=== PATIENT | female | born 1970 | race Caucasian/White ===

== ENCOUNTER 2024-12-06 10:18 | Outpatient (CLI) | payer OTHER, SELFPAY ==
--- NOTE | 2024-12-06 10:24 | MM_ITS ---
WS: [id number] BILATERAL 3D TOMOSYNTHESIS DIGITAL SCREENING MAMMOGRAPHY WITH CAD CLINICAL INFORMATION: SCREENING HISTORY: Screening mammogram. No current complaints. COMPARISON: None available TECHNIQUE: Bilateral CC and MLO views. FINDINGS: The breasts are composed of heterogeneous fibroglandular density tissue, which can limit the detection of small underlying mass lesions. Partially obscured lobulated ovoid nodule adjacent to the chest wall upper inner RIGHT breast measuring1.3 cm may represent enlarged lymph node but technically indeterminate. Recommend further evaluation with ultrasound. Unremarkable LEFT breast. MM/MM [facility] tomosynthesis [id number] IMPRESSION: DENSITY: The breasts are heterogeneously dense, which may obscure small masses. BI-RADS: 0 - Incomplete: Need additional imaging evaluation FOLLOW UP: Need Additional Imaging Recommend RIGHT breast ultrasound in further evaluation upper inner RIGHT breas t
== END 2024-12-06 10:19 | disposition home or self-care (01) ==
LOC: RAD 10:20
PROVIDERS: PCP Family Medicine; Visit Provider Family Medicine
DX: Z12.31 Encounter for screening mammogram for malignant neoplasm of breast (principal); R92.333 Mammographic heterogeneous density, bilateral breasts; N63.12 Unspecified lump in the right breast, upper inner quadrant
CPT/HCPCS: 77063; 77067

== ENCOUNTER 2024-12-22 12:35 | Outpatient (CLI) | payer MEDICAID, SELFPAY ==
--- NOTE | 2024-12-22 12:41 | US_ITS ---
WS: [id number] ULTRASOUND BREAST RIGHT TECHNIQUE: Ultrasound right breast focused area of concern. CLINICAL INFORMATION: R BREAST MASS FINDINGS: Ultrasound RIGHT breast demonstrates a hypoechoic lobulated nodule at the 1 o'clock position measuring 1.3 x 0.8 x 0.8 cm 4 cm from the nipple adjacent to the chest wall. This corresponds to the lesion seen on mammography. Recommend further evaluation with ultrasound-guided biopsy. US/US breast RT limited* [id number] IMPRESSION: Suspicious nodule at the 1 o'clock position. Recommend further evaluation with ultrasound-guided biopsy.
== END 2024-12-22 12:36 | disposition home or self-care (01) ==
PROVIDERS: PCP Family Medicine; Visit Provider Family Medicine
DX: N63.12 Unspecified lump in the right breast, upper inner quadrant (principal)
CPT/HCPCS: 76642

== ENCOUNTER 2025-01-18 14:16 | Outpatient (CLI) | payer MEDICAID, SELFPAY ==
--- NOTE | 2025-01-18 14:21 | US_ITS ---
WS: [id number] ULTRASOUND-GUIDED RIGHT BREAST BIOPSY CLINICAL INFORMATION: R BREAST MASS FINDINGS: The procedure including risks, benefits, and complications were discussed with the patient who agreed to proceed. Using sterile technique patient was prepped and draped in the usual sterile fashion. After 1% lidocaine utilizing real-time ultrasound guidance 5 14-gauge cores were obtained of the RIGHT breast lesion at the 1:00 o'clock position 4 cm from the nipple. Subsequently a titanium clip was placed in the biopsy cavity. No immediate complications. US/[place] [id number] IMPRESSION: 1. Uncomplicated ultrasound-guided RIGHT breast biopsy. 2. The pathology demonstrates benign breast parenchyma with extensive stromal fibrosis/hyalinization and focal fibroadenomatoid changes. No atypia or maligna ncy. Findings are benign. 3. Recommend return to annual screening mammography.. DENSITY: The breasts are heterogeneously dense, which may obscure small masses. BI-RADS: 2 - Benign FOLLOW UP: 1 Year Follow-up Recommend return to annual screening mammography.
== END 2025-01-18 14:17 | disposition home or self-care (01) ==
LOC: RAD 14:18
PROVIDERS: PCP Family Medicine; Visit Provider Family Medicine
DX: N63.12 Unspecified lump in the right breast, upper inner quadrant (principal); N60.31 Fibrosclerosis of right breast
CPT/HCPCS: 19083; 88305

== ENCOUNTER 2025-01-29 12:50 | Emergency (ER) | payer MEDICAID, SELFPAY ==
[2025-01-29 12:54] VITALS: BP 134/64; PULSE 80; TEMP 37; O2SAT 95; BMI 27.1
--- NOTE | 2025-01-29 13:19 | ED_ITS ---
HPI - Dental/Oral 2 General: Chief complaint: Dental/Oral Stated complaint: tooth pain, facial swelling Time Seen by Provider: 01/29/25 13:04 Source: patient Mode of arrival: ambulatory Limitations: no limitations History of Present Illness: Patient is a 54-year-old female that presents to the emergency department with concern of possible dental infection after she had 3 teeth pulled last week. She has a partial denture covering the location. She denies any fever or chills but has had pain, swelling and bruising to the face. She has been using [id number] Tylenol and ibuprofen to help with the pain. She reports nausea but denies any vomiting. She is afebrile here. She presents to the emergency department for antibiotics for possible infection. Patient states she does have an allergy to sulfa but is able to take amoxicillin without difficulty. Associated symptoms: Denies fever(s) or tongue swelling Related Data Previous Rx's ?Medication ?Instructions ?Recorded amoxicillin 875 mg-potassium 1 tab PO BID #19 tabs clavulanate 125 mg tablet ondansetron 4 mg disintegrating 4 mg PO .q6-8h PRN ne[place] sea and 01/29/25 tablet vomiting #10 tabs Allergies Allergy/AdvReac Type Severity Reaction Status Date / Time Sulfa (Sulfonamide Allergy Unknown Verified 01/29/25 13:03 Antibiotics) Review of Systems 2 General: Reports: 10 or more systems reviewed and unremarkable except in HPI and below Const: Denies: fever(s) or chills Eyes: Denies: change in vision ENMT: Reports: mouth pain and dental pain; Denies: ear discharge Card: Denies: chest pain or palpitations Resp: Denies: dyspnea, productive cough or non-productive cough GI: Reports: nausea; Denies: abdominal pain or vomiting : Denies: dysuria or urinary frequency Musc: Denies: neck pain or back pain Skin/Breast: Reports: changes in skin color (Right sided facial and jaw bruising) Neuro: Denies: headache(s), numbness in extremities or weakness in extremities Psych: Denies: anxiety or depression Endo: Denies: polydipsia Rahul/Lymph: Denies: easy bruising or easy bleeding All/Imm: Reports: facial swelling (Appears to be traumatic); Denies: tongue swelling PFSH ED 2 PFSH: Social History (Updated 01/29/25 @ 13:22 by JAZMIN Jones) Smoking and tobacco/nicotine status: current every day tobacco/nicotine user Physical Exam 2 Const: COMMON NORMALS: no acute distress and alert GENERAL APPEARANCE: c ooperative HENMT: COMMON NORMALS: external ears normal HEAD IMAGES: 1. Mild bruising and swelling 2. Mild bruising and swelling FACE & SINUS: edema on the right (Swelling and mild bruising) periorbital, mandible and maxilla EXTERNAL EAR: Yes external ears normal THROAT: p osterior oropharynx normal Eye: COMMON NORMALS: Equal, round and reactive pupils present and conjunctivae normal CONJUNCTIVA: Yes conjunctivae normal PUPIL: Yes Equal, round and reactive pupils present Neck/C-Spine: COMMON NORMALS: full ROM, no lymphadenopathy, supple and no meningeal signs Resp: COMMON NORMALS: normal respiratory effort and clear to auscultation bilaterally AUSCULTATION: clear to auscultation bilaterally, no crackles, no rales, no rhonchi and no wheezes Cardio: COMMON NORMALS: regular rate and regular rhythm RATE: regular rate RHYTHM: regular rhythm Extremity: COMMON NORMALS: full ROM, no calf tenderness and no pedal edema Neuro: SENSORIUM/ORIENTATION: Yes alert MENINGEAL SIGNS: Yes no meningeal signs and No nuccal rigidity Psych: COMMON NORMALS: mental status grossly normal and cooperative A TTITUDE: Yes calm Skin: GENERAL SKIN EXAM: ecchymosis (To the right side of the face) Course 2 Vital Signs: Vital signs: Vital Signs Temperature 98.6 F 01/29/25 12:54 Pulse Rate 80 01/29/25 12:54 Blood Pressure 134/64 01/29/25 12:54 Pulse Oximetry 95 01/29/25 12:54 Oxygen Delivery Me thod Room Air 01/29/25 12:54 MDM - Dental/Oral Medical Decision Making Patient was advised of the exam findings. It is concerning that she has swelling and bruising after the procedure but this may just be part of the procedure. The patient does report some bleeding from the area and is somewhat inflamed. She was advised that we will place her on antibiotics to help with any possible infection and Zofran to help with the nausea. Patient has taken amoxicillin in the past without difficulty so we will place her on Augmentin twice daily for 10 days. I recommended that she follow-up with her dentist next week for recheck and return to the emergency department with any worsening symptoms. The patient expressed understanding. Differential Diagnosis Likely dental caries and dental abscess No radiology studies performed this visit Critical Care Time 2 Critical Care Time: Critical Care Time: No Discharge Plan Discharge Patient Disposition: Home Clinical Impression: Dental infection, Right facial swelling, Facial bruising Prescriptions: New amoxicillin-pot clavulanate 875-125 mg tablet 1 tab PO BID Qty: 19 0RF ondansetron 4 mg tablet,disintegrating 4 mg PO .q6-8h PRN (Reason: nausea and vomiting) Qty: 10 0RF Discharge Orders: Discharge ED (Routine); Ordered 01/29/25 Ordered By: Zain Reyes Referrals: Jake Lay MD [Primary Care Provider, [facility]] Discharge Diet: Usual diet Discharge Activity: Resume usual activity Patient Instructions: Dental Abscess (ED), Opioid Safety, Pain Management Activity Restrictions/Additional Instructions: Use the medications as directed. Your prescriptions were sent electronically to the [facility] pharmacy in [place]. You may continue to alternate [id number] Tylenol or ibuprofen for pain. Warm salt water rinses 3 times a day. Follow-up with your dentist as soon as possible. Warm compresses 15 minutes at a time, 5 times throughout the day as needed for pain. If the warm compress makes the swelling worse you may alternate with ice. Return to the emergency department with any worsening symptoms. Print Language: Liberian Coding Level of Care Code ED Vice President Of Operations for Elliot Grijalva
[2025-01-29] MEDS: ondansetron hcl ODT 4 mg Tab PO (13:26)
[2025-01-29] MEDS: amoxicillin-clav 875-125 mg Tablet 1 TAB PO (13:27)
[2025-01-29 13:46] VITALS: BP 120/71; PULSE 69; O2SAT 95
== END 2025-01-29 13:48 | disposition home or self-care (01) ==
PROVIDERS: Emergency Provider Physician Assistant; PCP Family Medicine
DX: K04.7 Periapical abscess without sinus (principal); S00.83XA Contusion of other part of head, initial encounter; F17.200 Nicotine dependence, unspecified, uncomplicated; X58.XXXA Exposure to other specified factors, initial encounter; Z88.2 Allergy status to sulfonamides
CPT/HCPCS: 12345; 99283; J9999; Q0162